=== PATIENT | male | born 1975 | race Caucasian/White ===

== ENCOUNTER 2016-06-16 01:33 | Emergency (ER) | payer SELFPAY ==
--- NOTE | 2016-06-16 19:12 | ER ---
ADMIT: 06/16/2016 RM/LOC: ER [facility] MR#: [id number] [address] [id number] LEE BRIGHT [address] [place] [id number] Emergency Room Report SEX: M AGE: 40 : 1975 DATE: 06/16/2016 The patient is a 40-year-old Korean-speaking male complaining of acute onset periumbilical abdominal pain and associated nausea, but no fevers, chills, vomiting, cough, or diarrhea. Exam is remarkable for nontoxic, acutely ill, afebrile male, tender periumbilical region. Bowel sounds decreased. Normal CBC, CMP, lactic acid, CRP, lipase, and troponin. Urinalysis is negative. The patient is given a liter of fluid, Zofran, Toradol, Protonix, Dilaudid with improvement. Bladder scan [address] abdomen and pelvis negative. The patient is discharged with Protonix 40 mg daily #30. Diet as tolerated. Follow up with Dr. Luna as needed. Catracho Powell MD/ alisson JOB #: [id number] CC: Catracho Powell MD, Attending Physician Earnest Luna MD, Family Physician Earnest Luna MD
== END 2016-06-16 04:15 | disposition home or self-care (01) ==
LOC: ER 01:33
DX: R10.33 Periumbilical pain (principal); E11.9 Type 2 diabetes mellitus without complications; Z79.899 Other long term (current) drug therapy

== ENCOUNTER → 2016-07-01 | Outpatient (CLI) | payer OTHER | END | disposition home or self-care (01) | LOC: PTH.S 05-08 10:15 | DX: E11.9 Type 2 diabetes mellitus without complications (principal) ==